=== PATIENT | female | born 1995 | race Caucasian/White ===

== ENCOUNTER 2017-03-22 12:54 | Emergency (ER) | payer MEDICAID ==
[~2017-03-22] VITALS: Ht 162.6 cm; Wt 80.0 kg
[2017-03-22 12:56] VITALS: BP 108/74; PULSE 124; RESP 18; TEMP 100; O2SAT 98
[2017-03-22 14:08] VITALS: O2SAT 96
[2017-03-22 14:17] LABS: AUTOMATED NEUTROPHIL # 9.9 TH/MM3 (1.8-7.7); BASOPHIL % 0.4 % (0.0-2.0); EOSINOPHIL % 0.3 % (0.0-4.0); HEMATOCRIT 34.4 % (35.0-46.0); HEMOGLOBIN 11.7 GM/DL (11.6-15.3); LYMPH % 5.9 % (9.0-44.0); LYMPHOCYTE # 0.7 TH/MM3 (1.0-4.8); MEAN CORPUSCULAR HGB CONC 34.1 % (32.0-36.0); MEAN PLATELET VOLUME 7.9 FL (7.0-11.0); MONO % 8.5 % (0.0-8.0); NEUT % 84.9 % (16.0-70.0); PLATELET COUNT 271 TH/MM3 (150-450); RED BLOOD COUNT 3.91 MIL/MM3 (4.00-5.30); RED CELL DISTRIBUTION WIDTH 13.1 % (11.6-17.2); WHITE BLOOD COUNT 11.6 TH/MM3 (4.0-11.0)
[2017-03-22 14:37] LABS: BACTERIA, URINE MOD /hpf; BILIRUBIN, URINE NEG (NEG); BLOOD, URINE SMALL (NEG); GLUCOSE,URINE NEG (NEG); KETONE, URINE 40 mg/dL (NEG); MUCUS URINE MANY /lpf (OCC); NITRITE,URINE NEG (NEG); PH, URINE 6.5 (5.0-8.5); SQUAMOUS EPITHELIAL CELL URINE 29 /hpf (0-5); URINE COLOR YELLOW (YELLW/STRAW); URINE LEUKOCYTE ESTERASE LARGE (NEG)
[2017-03-22 14:39] LABS: ALT (GPT) 22 U/L (10-53); AST (GOT) 21 U/L (15-37); BICARBONATE 25.5 MEQ/L (21.0-32.0); BLOOD UREA NITROGEN 4 MG/DL (7-18); CALCIUM 8.5 MG/DL (8.5-10.1); CHLORIDE 106 MEQ/L (98-107); CREATININE 0.55 MG/DL (0.50-1.00); GLOMERULAR FILTRATION RATE 137 ML/MIN (>89); GLUCOSE,RANDOM 91 MG/DL (74-106); SODIUM (NA) 139 MEQ/L (136-145)
[2017-03-22 14:42] LABS: ALKALINE PHOSPHATASE 93 U/L (45-117); TOTAL BILIRUBIN ADULT 0.1 MG/DL (0.2-1.0); TOTAL PROTEIN 6.8 GM/DL (6.4-8.2)
[2017-03-22] MEDS ORDERED: OSEL75 PO (14:52)
[2017-03-22] MEDS ORDERED: CEPH-460 PO (14:52)
--- NOTE | 2017-03-22 14:52 | PD ---
HPI Chief Complaint: Cold / Flu Symptoms Time Seen by Provider: 13:07 Travel History International Travel<30 days: No Contact w/Intl Traveler<30days: No Traveled to known affect area: No History of Present Illness HPI 21 yo F c/o rhinorrhea and cough. She is 35 weeks and follows with the [facility] health Department. She is 1 para 0. Routine blood work obtained at [facility] revealed an elevated white blood cell counts and the patient was sent to [place]. She denies vaginal bleeding. No abdominal pain. No subjective fever however fever was observed upon arrival. Severity moderate. Timing is intermittent. She follows with Dr. Swanson. [facility] Past Medical History ?: LMP: 06/2016 Social History Alcohol Use: No Tobacco Use: Yes Substance Use: No Allergies-Medications (Allergen,Severity, Reaction): Coded Allergies: No Known Allergies (Unverified , 03/22/17) Reported Meds & Prescriptions Reported Meds & Active Scripts Active Tamiflu (Oseltamivir Phosphate) 75 Mg Cap 75 Mg PO BID 5 Days Keflex (Cephalexin) 500 Mg Cap 500 Mg PO Q8H 5 Days Review of Systems Except as stated in HPI: all other systems reviewed are Neg General / Constitutional: Positive: Fever HENT: Positive: Rhinitis, Rhinorrhea Physical Exam Narrative GENERAL: 21-year-old female well-nourished well-developed. SKIN: Focused skin assessment warm/dry. HEAD: Atraumatic. Normocephalic. EYES: Pupils equal and round. No scleral icterus. No injection or drainage. ENT: No nasal bleeding or discharge. Mucous membranes pink and moist. Posterior oropharynx widely patent. No anterior neck adenopathy. NECK: Trachea midline. No JVD. CARDIOVASCULAR: Regular rate and rhythm. No murmur appreciated. RESPIRATORY: No accessory muscle use. Clear to auscultation. Breath sounds equal bilaterally. GASTROINTESTINAL: Soft. There is no focus of tenderness. MUSCULOSKELETAL: No obvious deformities. No clubbing. No cyanosis. No evidence DVT. NEUROLOGICAL: Awake and alert. No obvious cranial nerve deficits. Motor grossly within normal limits. Normal speech. PSYCHIATRIC: Appropriate mood and affect; insight and judgment normal. Data Data Last Documented VS Vital Signs Date Time Temp Pulse Resp B/P (MAP) Pulse Ox O2 Delivery O2 Flow Rate FiO2 03/22/17 15:22 77 16 148/75 (99) 100 03/22/17 14:08 Room Air 03/22/17 12:56 100.0 Orders Orders Complete Blood Count With Diff (03/22/17 13:31) Comprehensive Metabolic Panel (03/22/17 13:31) Urinalysis - C+S If Indicated (03/22/17 13:31) Influenzae A/B Antigen (03/22/17 13:31) Ecg Monitoring (03/22/17 13:31) Iv Access Insert/Monitor (03/22/17 13:31) Oximetry (03/22/17 13:31) Urine Culture (03/22/17 14:00) Oseltamivir (Tamiflu) (03/22/17 15:00) Cephalexin (Keflex) (03/22/17 15:00) Ed Discharge Order (03/22/17 14:53) Labs Laboratory Tests Test 03/22/17 13:50 03/22/17 14:00 White Blood Count 11.6 TH/MM3 Red Blood Count 3.91 MIL/MM3 Hemoglobin 11.7 GM/DL Hematocrit 34.4 % Mean Corpuscular Volume 88.0 FL Mean Corpuscular Hemoglobin 30.0 PG Mean Corpuscular Hemoglobin Concent 34.1 % Red Cell Distribution Width 13.1 % Platelet Count 271 TH/MM3 Mean Platelet Volume 7.9 FL Neutrophils (%) (Auto) 84.9 % Lymphocytes (%) (Auto) 5.9 % Monocytes (%) (Auto) 8.5 % Eosinophils (%) (Auto) 0.3 % Basophils (%) (Auto) 0.4 % Neutrophils # (Auto) 9.9 TH/MM3 Lymphocytes # (Auto) 0.7 TH/MM3 Monocytes # (Auto) 1.0 TH/MM3 Eosinophils # (Auto) 0.0 TH/MM3 Basophils # (Auto) 0.0 TH/MM3 CBC Comment AUTO DIFF Differential Total Cells Counted 100 Neutrophils % (Manual) 68 % Band Neutrophils % 21 % Lymphocytes % 4 % Monocytes % 4 % Eosinophils % 1 % Basophils % 1 % Neutrophils # (Manual) 10.4 TH/MM3 Promyelocytes 1 % Differential Comment FINAL DIFF MANUAL Platelet Estimate NORMAL Platelet Morphology Comment NORMAL Blood Urea Nitrogen 4 MG/DL Creatinine 0.55 MG/DL Random Glucose 91 MG/DL Total Protein 6.8 GM/DL Albumin 3.0 GM/DL Calcium Level 8.5 MG/DL Alkaline Phosphatase 93 U/L Aspartate Amino Transf (AST/SGOT) 21 U/L Alanine Aminotransferase (ALT/SGPT) 22 U/L Total Bilirubin 0.1 MG/DL Sodium Level 139 MEQ/L Potassium Level 3.3 MEQ/L Chloride Level 106 MEQ/L Carbon Dioxide Level 25.5 MEQ/L Anion Gap 8 MEQ/L Estimat Glomerular Filtration Rate 137 ML/MIN Urine Color YELLOW Urine Turbidity HAZY Urine pH 6.5 Urine Specific [place] 1.021 Urine Protein 30 mg/dL Urine Glucose (UA) NEG mg/dL Urine Ketones 40 mg/dL Urine Occult Blood SMALL Urine Nitrite NEG Urine Bilirubin NEG Urine Urobilinogen LESS THAN 2.0 MG/DL Urine Leukocyte Esterase LARGE Urine RBC 9 /hpf Urine WBC 18 /hpf Urine Squamous Epithelial Cells 29 /hpf Urine Bacteria MOD /hpf Urine Mucus MANY /lpf Microscopic Urinalysis Comment CATH-CULTURE IND MDM Medical Decision Making Medical Screen Exam Complete: Yes Emergency Medical Condition: Yes Medical Record Reviewed: Yes Differential Diagnosis Influenza, UTI, intrauterine , anemia, metabolic disarray Narrative Course CBC & BMP Diagram 03/22/17 13:50 Total Protein 6.8, Albumin 3.0 L, Calcium Level 8.5, Alkaline Phosphatase 93, Aspartate Amino Transf (AST/SGOT) 21, Alanine Aminotransferase (ALT/SGPT) 22, Total Bilirubin 0.1 L UA: UTI present Influenza Assay is positive Scripts as below Follow up with Dr Swanson Pt and stated agreement Diagnosis Primary Impression: Influenza Additional Impressions: UTI (urinary tract infection) Qualified Codes: N39.0 - Urinary tract infection, site not specified; R31.9 - Hematuria, unspecified Qualified Codes: Z3A.35 - 35 weeks gestation of Referrals: Juventino Swanson MD 1 day Med/Other Pt SpecificInfo: Prescription(s) given Scripts Oseltamivir (Tamiflu) 75 Mg Cap 75 MG PO BID for Mgmt Viral Infection for 5 Days, #10 CAP 0 Refills Prov: Jose Clark MD 03/22/17 Cephalexin (Keflex) 500 Mg Cap 500 MG PO Q8H for Infection for 5 Days, #15 CAP 0 Refills Prov: Jose Clark MD 03/22/17 Disposition: 01 DISCHARGE HOME Condition: Stable Jose Clark MD Mar 22, 2017 14:52
[2017-03-22] MEDS ORDERED: CEPHALEXIN MONOHYDRATE 500 MG CAP PO ONE (15:00)
[2017-03-22] MEDS ORDERED: OSELTAMIVIR PHOSPHATE 75 MG CAP PO ONE (15:00)
[2017-03-22 15:16] LABS: BANDS 21 % (0-6); BASOPHILS 1 % (0-2); LYMPHOCYTES 4 % (9-44); MONOCYTES 4 % (0-8); NEUTROPHIL # MANUAL DIFF 10.4 TH/MM3 (1.8-7.7); POLYS (SEG NEUTROPHILS) 68 % (16-70); PROMYELOCYTES 1 % (0-0)
[2017-03-22 15:22] VITALS: BP 148/75
== END 2017-03-22 15:26 | disposition home or self-care (01) ==
LOC: NEPE 12:54
DX: O99.513 Diseases of the respiratory system complicating pregnancy, third trimester (principal); J09.X2 Influenza due to identified novel influenza A virus with other respiratory manifestations; O23.43 Unspecified infection of urinary tract in pregnancy, third trimester; B96.89 Other specified bacterial agents as the cause of diseases classified elsewhere; O99.333 Smoking (tobacco) complicating pregnancy, third trimester; Z3A.35 35 weeks gestation of pregnancy
CPT/HCPCS: 80053; 81001; 85007; 85027; 87086; 87804; 99284

== ENCOUNTER 2017-06-10 05:58 | Inpatient (IN) | payer MEDICAID ==
[2017-06-10] VITALS (42 sets, daily range): BP systolic 88–159; BP diastolic 48–101; PULSE 72–151; RESP 16–18; TEMP 97.4–99.3; O2SAT 97
[~2017-06-10] VITALS: Ht 162.6 cm; Wt 92.0 kg
[~2017-06-10 05:58] MED LIST: CEPH-460 PO; OSEL75 PO
[2017-06-10] MEDS ORDERED: LACTATED RINGER'S 1000 ML INJ 1,000 ML IV PRN (06:46)
--- NOTE | 2017-06-10 06:46 | HHI.HP ---
History & Physical H&P HPI HPI Chief Complaint Contractions Date Seen: Jun 10, 2017 Time Seen: 06:41 Travel History International Travel<30 Days: No Contact w/Intl Traveler<30Days: No Known Affected Area: No History of Present Illness HPI 21-year-old primigravida at 41 weeks gestation who reports increasing contractions starting around 11 PM. She is having some light spotting. She denies any leakage of fluid. She reports good movement. She is now 5 cm 100% effaced -1. She was fingertip in the office last week. History (Limited) History Past Medical History Narrative Medical GERD for which she takes an H2 abdullahi Obstetric History Obstetric History Primigravida Current cared for by Dr. Alvarenga GBS negative Past Surgical History Surgical History: No Previous Surgery Family History Family History: Negative Social History Alcohol Use: No Tobacco Use: No Substance Abuse: No Allergies-Medications Allergies-Medications (Allergen,Severity, Reaction): Coded Allergies: No Known Allergies (Unverified , 03/22/17) Home Meds Active Scripts Oseltamivir (Tamiflu) 75 Mg Cap, 75 MG PO BID for Mgmt Viral Infection for 5 Days, #10 CAP 0 Refills Prov:Jose Clark MD 03/22/17 Cephalexin (Keflex) 500 Mg Cap, 500 MG PO Q8H for Infection for 5 Days, #15 CAP 0 Refills Prov:Jose Clark MD 03/22/17 ROS Review of Systems Except as stated in HPI: all other systems reviewed are Neg Physical Exam Physical Exam Narrative GENERAL: Well-nourished, well-developed patient. SKIN: Warm and dry. HEAD: Normocephalic and atraumatic. EYES: No scleral icterus. No injection or drainage. ENT: No nasal drainage noted. Mucous membranes pink. Airway patent. NECK: Supple, trachea midline. No JVD. CARDIOVASCULAR: Regular rate and rhythm without murmurs, gallops, or rubs. RESPIRATORY: Breath sounds equal bilaterally. No accessory muscle use. ABDOMEN/GI: Abdomen soft, non-tender, bowel sounds present, no rebound, no guarding Gravid to [-] weeks size Fundal Height: [40-] GENITOURINARY: External Genitalia: intact and normal in appearance BUS glands: [-Negative] Cervix: [-] Dilatation: [5] Effacement: [100-] Station: [--2] Presentation: [-] Membranes: [intact] Uterine Contractions: [Every 4-] FHT's: Category: [-1] Baseline: [-] Reactive: [-] Variability: [-] Decels: [-] EXTREMITIES: No cyanosis or edema. BACK: Nontender without obvious deformity. No CVA tenderness. NEUROLOGICAL: Awake and alert. Motor and sensory grossly within normal limits. Five out of 5 muscle strength in all muscle groups. Normal speech. Data Data MDM MDM Medical Record Reviewed: Yes Narrative Course / MDM Assessment: 21-year-old primigravida at 41 weeks gestation in early labor Plan: Admit for labor management. Juventino Boles MD Jun 10, 2017 06:45 Juventino Bloes MD Jun 10, 2017 06:46
[2017-06-10] MEDS ORDERED: SODIUM CHLORID 0.9% 500 ML INJ 500 ML IV PRN (07:00)
[2017-06-10] MEDS ORDERED: MINERAL OIL 10 ML VIAL TOPICAL PRN (07:00)
[2017-06-10] MEDS ORDERED: CITRIC ACID-SODIUM CITRATE LIQ 30 ML UDC PO SCH (07:00)
[2017-06-10] MEDS ORDERED: LIDOCAINE HCL 1% 50 ML VIAL I-DERMAL PRN (07:00)
[2017-06-10] MEDS ORDERED: ONDANSETRON HCL 4 MG/2 ML VIAL IV PUSH PRN (07:00)
[2017-06-10] MEDS ORDERED: LIDOCAINE HCL 1% 50 ML VIAL INFIL PRN (07:00)
[2017-06-10] MEDS ORDERED: OXYTOCIN 30 UNITS-500ML PREMIX 500 ML IV ONE (07:00)
[2017-06-10] MEDS ORDERED: SODIUM CHLOR 0.9% 1000 ML INJ 1,000 ML IV PRN (07:06)
[2017-06-10] MEDS: LACTATED RINGER'S 1000 ML INJ 1,000 ML IV SCH ×2 (07:35→09:51)
[2017-06-10 07:41] LABS: BASOPHIL % 0.1 % (0.0-2.0); EOSINOPHIL % 0.1 % (0.0-4.0); HEMATOCRIT 38.7 % (35.0-46.0); HEMOGLOBIN 13.7 GM/DL (11.6-15.3); LYMPH % 9.1 % (9.0-44.0); LYMPHOCYTE # 2.3 TH/MM3 (1.0-4.8); MEAN CELL VOLUME 86.2 FL (80.0-100.0); MEAN CORPUSCULAR HEMOGLOBIN 30.5 PG (27.0-34.0); MEAN CORPUSCULAR HGB CONC 35.4 % (32.0-36.0); MEAN PLATELET VOLUME 7.9 FL (7.0-11.0); MONO % 5.1 % (0.0-8.0); MONOCYTE # 1.3 TH/MM3 (0-0.9); NEUT % 85.6 % (16.0-70.0); PLATELET COUNT 304 TH/MM3 (150-450); RED BLOOD COUNT 4.49 MIL/MM3 (4.00-5.30); RED CELL DISTRIBUTION WIDTH 13.9 % (11.6-17.2); WHITE BLOOD COUNT 25.7 TH/MM3 (4.0-11.0)
[2017-06-10] MEDS ORDERED: fentaNYL 2MCG-BUPIV 0.125% INJ 100 ML ONE (07:50)
[2017-06-10 07:54] LABS: AMORPHOUS SEDIMENT, URINE RARE; BACTERIA, URINE RARE /hpf; BILIRUBIN, URINE NEG (NEG); BLOOD, URINE NEG (NEG); GLUCOSE,URINE NEG (NEG); KETONE, URINE NEG (NEG); MUCUS URINE FEW /lpf (OCC); NITRITE,URINE NEG (NEG); SQUAMOUS EPITHELIAL CELL URINE <1 /hpf (0-5); URINE COLOR YELLOW (YELLW/STRAW); URINE LEUKOCYTE ESTERASE TRACE (NEG)
--- NOTE | 2017-06-10 07:59 | MH ---
cc: Abraham Alvarenga MD DATE OF ADMISSION: 06/10/2017 CHIEF COMPLAINT: Induction of labor. HISTORY OF PRESENT ILLNESS: This is a H&P dictated based on office encounter from 06/05/17 for planned IOL on 06/10/17 This patient is a 21-year-old G1 who will be at 41 weeks and zero days on day of her induction, HAILEE by her LMP consistent with a 12-week ultrasound (HAILEE 06/03/2017) here today for induction of labor secondary to late term gestation. Her has been uncomplicated other than well-controlled migraines and a history of scoliosis that never required surgery. She was seen most recently in the outpatient setting on 06/05/2017, and had no complaints. Her membranes were stripped. Any additions to her HPI will be added as an addendum or a separate note on time of her presentation. PAST MEDICAL HISTORY: Migraines. MEDICATIONS: vitamins. ALLERGIES: NO KNOWN DRUG ALLERGIES. PAST SURGICAL HISTORY: Denies. FAMILY HISTORY: Noncontributory. GYNECOLOGIC HISTORY: LMP 08/27/2016. Denies history of STDs. OBSTETRICAL HISTORY: G1. SOCIAL HISTORY: Previous tobacco use outside of , half a pack per day. During , denies tobacco, alcohol or drug use. PHYSICAL EXAMINATION: VITAL SIGNS: Documented on 06/05/2017, blood pressure 110/70. GENERAL: Alert and oriented x 3, no acute distress. CARDIAC: Regular rate and rhythm. No murmurs, rubs or gallops. LUNGS: Clear to auscultation bilaterally. No wheezes, crackles or rhonchi. ABDOMEN: Gravid, nontender, nondistended. Fundal height appropriate. GENITOURINARY: Normal external female genitalia. Cervix 1 cm, 50% effaced, -3 station, mid position, medium consistency. Gleason score 5. EXTREMITIES: No clubbing, cyanosis or edema. LABORATORIES: Blood type B positive, antibody negative. Hemoglobin 13.2. Pap normal. Varicella immune. Rubella immune. VDRL nonreactive. Urine culture, none collected. Hepatitis B surface antigen nonreactive. HIV negative. Urine drug screen positive for marijuana. Sickle cell screen negative. TSH normal. Gonorrhea, Chlamydia negative. Cystic fibrosis screen negative. Declined quad screen. Repeat hemoglobin at 28 weeks 12.2. One-hour Glucola 76. GBS negative. Anatomy US: Normal anatomy, female fetus, anterior placenta. ASSESSMENT AND PLAN: This patient is a 21-year-old 1 at 41-weeks and zero days by last menstrual period and consistent with 12-week ultrasound here today for induction of labor secondary to late term gestation. 1. Intrauterine : Will be placed on continuous monitoring. Cephalic prior to admission. Estimated weight 7-1/2 to 8 pounds. Group B streptococcus negative. Female fetus. Anterior placenta. - Vaccines: Declined flu vaccine, status post Tdap this . 2. Induction of labor: Gleason score 5. Will arrive and have Cervidil placed. Monitor overnight. Allow to eat if category 1 tracing. Remove in the morning and likely artificial rupture of membranes and begin Pitocin. Discussed possibility of prolonged induction of labor given unfavorable cervix and primigravid status. 3. Late gestation: Induction as above. 4. Scoliosis: Likely able to receive epidural. MD ELVA Allison/MEET , 12:41 PM , 01:13 PM [place]
--- NOTE | 2017-06-10 09:53 | HHI.PR ---
SERVICE ARCHITECT Note Note to bedside to evaluate pt, now s/p epidural feeling comfortable; FHTs cat I with baseline 130s; SVE 6/C/-1, AROM'd this check, some particulate vernix in fluid but think clear overall; contractions spacing out, every 6-8 min, start pitocin and continue augmentation of labor. Rebecca Vargas MD Jun 10, 2017 09:53
[2017-06-10] MEDS ORDERED: OXYTOCIN 30 UNITS-500ML PREMIX 500 ML IV PRN (10:00)
[2017-06-10] MEDS ORDERED: LIDOCAINE HCL 1% 20 ML VIAL ONE (14:56)
--- NOTE | 2017-06-10 15:17 | PD.OB.DELI ---
Weeks gestation: 41 Anesthesia: Epidural Episiotomy: Midline Vaginal Delivery: Normal, Spontaneous Presentation: Vertex Nuchal Cord: x1 (body cord delivered through) Delayed cord clamping (45 sec): Yes Infant: Female Delivery date: Jun 10, 2017 Delivery time: 15:56 One Minute : 7 Five Minute : 9 Placenta: Spontaneous delivery, Intact, 3 vessel cord Laceration: Episiotomy (2nd degree perineal) Repair: Chromic running Estimated blood loss: 100 mL Rebecca Vargas MD Jun 10, 2017 15:17
[2017-06-10] MEDS ORDERED: SODIUM CHLORIDE 0.9% FLUSH 10 ML FLUSH IV FLUSH PRN (15:30)
[2017-06-10] MEDS ORDERED: ACETAMINOPHEN 325 MG TAB PO PRN (15:30)
[2017-06-10] MEDS ORDERED: BENZOCAINE 20% TOPICAL SPRAY 60 ML CAN TOPICAL PRN (15:30)
[2017-06-10] MEDS ORDERED: ALUMINUM/MAGNESIUM/SIMETH 30 ML CUP PO PRN (15:30)
[2017-06-10] MEDS ORDERED: OXYTOCIN 30 UNITS-500ML PREMIX 500 ML IV SCH (15:30)
[2017-06-10] MEDS ORDERED: ONDANSETRON ODT 4 MG TAB PO PRN (15:30)
[2017-06-10] MEDS ORDERED: DOCUSATE SODIUM 50 MG/SENNA 8.6 MG TAB PO PRN (15:30)
[2017-06-10] MEDS ORDERED: WITCH HAZEL 50%/GLYCERIN 12.5% 40 PAD JAR TOPICAL PRN (15:30)
[2017-06-10] MEDS ORDERED: oxyCODONE/ACETAMINOPHEN 5 MG/325 MG TAB PO PRN (15:30)
[2017-06-10] MEDS ORDERED: MEASLES, MUMPS, RUBELLA VACCINE 0.5 ML VIAL SQ ONE (16:00)
[2017-06-10] MEDS ORDERED: DIPHTH/TETANUS/ACEL PERTUSSIS (BOOSTER) 0.5 ML VIAL/PFS IM ONE (16:00)
[2017-06-10] MEDS ORDERED: REMOVE OLD PATCH T-DERMAL SCH (18:30)
[2017-06-10] MEDS: NICOTINE 14 MG/24 HR PATCH T-DERMAL SCH (18:43)
--- NOTE | 2017-06-10 18:49 | HHI.DCPOC ---
Discharge Care Plan Diagnosis: (1) (spontaneous vaginal delivery) Your Health Problems Are: Vaginal delivery Report Symptoms to Your Doctor -Temperature above 100.5 degrees -Redness, of incision or excessive or foul smelling drainage -Unusual pain or calf pain -Increased vaginal bleeding -Painful or difficulty urinating -Feelings of extreme sadness or anxiety after 2 weeks Goals to Promote Your Health * To prevent worsening of your condition and complications * To maintain your health at the optimal level Directions to Meet Your Goals Take your medications as prescribed Follow your dietary instruction Follow activity as directed Ensure plenty of rest for recovery Drink fluids for hydration Keep your appointments as scheduled Take your immunizations and boosters as scheduled If your symptoms worsen call your PCP, if no PCP go to Urgent Care Center or Emergency Room Smoking is Dangerous to Your Health. Avoid second hand smoke Call the 24-hour crisis hotline for domestic abuse at Abraham Alvarenga MD Jun 10, 2017 18:49
[2017-06-10] MEDS ORDERED: IBUP-232 PO ×2 (18:50→18:51)
[2017-06-10] MEDS: IBUPROFEN 800 MG TAB PO PRN (20:55)
[2017-06-10] MEDS ORDERED: SODIUM CHLORIDE 0.9% FLUSH 10 ML FLUSH IV FLUSH SCH (21:00)
[2017-06-10] MEDS ORDERED: ZOLPIDEM TARTRATE 5 MG TAB PO PRN (21:00)
[2017-06-10] MEDS: oxyCODONE/ACETAMINOPHEN 5 MG/325 MG TAB PO PRN (22:46)
[2017-06-11] MEDS: oxyCODONE/ACETAMINOPHEN 5 MG/325 MG TAB PO PRN ×2 (04:03→08:53)
--- NOTE | 2017-06-11 07:39 | HHI.OB ---
Subjective Post Day: 1 Remarks doing well, VB < menses, pain controlled, breast feeding Objective Vitals/I&O Vital Signs Date Time Temp Pulse Resp B/P (MAP) Pulse Ox O2 Delivery O2 Flow Rate FiO2 06/10/17 20:00 98.9 119 18 146/73 (97) 97 06/10/17 17:03 91 18 06/10/17 17:03 98.4 06/10/17 17:03 122/64 (83) 06/10/17 16:01 98 124/60 (81) 06/10/17 15:50 18 06/10/17 15:45 98 120/67 (84) 06/10/17 15:35 18 06/10/17 15:30 90 136/59 (84) 06/10/17 15:20 100 122/64 (83) 06/10/17 15:18 104 88/65 (73) 06/10/17 15:18 98.9 06/10/17 15:16 18 06/10/17 14:21 18 06/10/17 14:20 88 130/71 (90) 06/10/17 13:22 99 129/77 (94) 06/10/17 13:22 99.3 06/10/17 13:21 18 06/10/17 12:25 94 133/66 (88) 06/10/17 12:24 18 06/10/17 12:00 88 109/59 (76) 06/10/17 11:45 18 06/10/17 11:45 99.1 06/10/17 11:45 99.1 06/10/17 11:30 81 111/56 (74) 06/10/17 11:00 82 109/58 (75) 06/10/17 10:50 82 116/65 (82) 06/10/17 10:30 72 105/57 (73) 06/10/17 10:21 79 119/66 (83) 06/10/17 10:20 18 06/10/17 10:00 84 117/74 (88) 06/10/17 09:30 77 95/53 (67) 06/10/17 09:24 97.4 06/10/17 09:24 16 06/10/17 09:15 96 111/55 (73) 06/10/17 09:01 81 101/48 (65) 06/10/17 08:45 151 116/49 (71) 06/10/17 08:40 125/101 (109) 06/10/17 08:40 89 06/10/17 08:40 103 06/10/17 08:35 134/80 (98) 06/10/17 08:35 97 06/10/17 08:35 93 06/10/17 08:30 92 137/72 (93) 06/10/17 08:30 101 06/10/17 08:25 90 126/67 (86) 06/10/17 08:25 91 06/10/17 08:23 18 06/10/17 08:20 103 148/78 (101) 06/10/17 08:20 92 06/10/17 08:15 108 152/86 (108) 06/10/17 08:15 101 06/10/17 08:12 98 143/80 (101) 06/10/17 08:10 86 06/10/17 08:05 92 06/10/17 08:00 88 Objective Remarks GENERAL: Well-nourished, well-developed patient. CARDIOVASCULAR: Regular rate and rhythm without murmurs, gallops, or rubs. RESPIRATORY: Breath sounds equal bilaterally. No accessory muscle use. ABDOMEN/GI: Abdomen soft, non-tender. Fundus: Firm, non-tender at umbilicus. GENITOURINARY: Light to moderate bleeding. EXTREMITIES: No cyanosis or edema, non-tender, without signs of DVT. Medications and IVs Current Medications Medications (Trade) Dose Ordered Sig/Ranjana Route Start Time Stop Time Status Last Admin (NS Flush) 2 ml BID IV FLUSH 06/10/17 21:00 (NS Flush) 2 ml UNSCH PRN IV FLUSH 06/10/17 15:30 (Tylenol) 650 mg Q4H PRN PO 06/10/17 15:30 (Motrin) 800 mg Q8H PRN PO 06/10/17 15:30 06/10/17 20:55 (Percocet 5-325 Mg) 1 tab Q4H PRN PO 06/10/17 15:30 06/11/17 04:03 (Percocet 5-325 Mg) 2 tab Q4H PRN PO 06/10/17 15:30 (Americaine 20% Top Spr) 1 spray Q4H PRN TOPICAL 06/10/17 15:30 06/10/17 18:42 (Tucks Pads) 1 applic QID PRN TOPICAL 06/10/17 15:30 06/10/17 18:42 (Hazel-Colace) 2 tab Q12H PRN PO 06/10/17 15:30 06/11/17 04:03 (Ambien) 5 mg HS PRN PO 06/10/17 21:00 (Mag-Al Plus Susp Liq) 15 ml Q8H PRN PO 06/10/17 15:30 (Zofran Odt) 4 mg Q6H PRN PO 06/10/17 15:30 (Habitrol 14 Mg Patch.24 Hr) 1 patch DAILY T-DERMAL 06/10/17 18:30 06/10/17 18:43 Miscellaneous Information 1 DAILY T-DERMAL 06/10/17 18:30 Assessment/Plan Assessment and Plan 21 yo s/p at 41w 1. PPD #1: AF, VSS, anticipate d/c home today. Discussed precautions , expectations and follow up. Abraham Alvarenga MD Jun 11, 2017 07:39
[2017-06-11 08:00] VITALS: BP 115/71; PULSE 109; RESP 18; TEMP 98; O2SAT 98
[2017-06-11] MEDS: IBUPROFEN 800 MG TAB PO PRN (08:53)
[2017-06-11] MEDS: NICOTINE 14 MG/24 HR PATCH T-DERMAL SCH (08:55)
== END 2017-06-11 18:21 | disposition home or self-care (01) | DRG 775 ==
LOC: HOBED 05:58 → H2EB 06:54 → H2EA 07:09 → H1EA 16:44
PROVIDERS: ADMIT Obstetrics & Gynecology; ATTEND Obstetrics & Gynecology
PROC: 10E0XZZ Delivery of Products of Conception, External Approach (ICD-10-PCS; principal; 2017-06-10)
PROC: 0W8NXZZ Division of Female Perineum, External Approach (ICD-10-PCS; 2017-06-10)
PROC: 10907ZC Drainage of Amniotic Fluid, Therapeutic from Products of Conception, Via Natural or Artificial Opening (ICD-10-PCS; 2017-06-10)
DX: O48.0 Post-term pregnancy (principal); M41.9 Scoliosis, unspecified; K21.9 Gastro-esophageal reflux disease without esophagitis; O99.62 Diseases of the digestive system complicating childbirth; O69.81X0 Labor and delivery complicated by cord around neck, without compression, not applicable or unspecified; Z37.0 Single live birth; Z3A.41 41 weeks gestation of pregnancy; Z87.891 Personal history of nicotine dependence
CPT/HCPCS: 81001; 85025; 86900; 86901; J2590; J3010; J7120